=== PATIENT | female | born 1990 | race Caucasian/White ===

== ENCOUNTER 2018-01-23 15:18 | Observation (INO) | payer SELFPAY ==
[~2018-01-23] VITALS: Ht 154.9 cm; Wt 50.6 kg
[~2018-01-23 15:18] MED LIST: ACET325 PO; Bactrim Ds Tab1 EACH PO; CEPH500 PO; CYCL10 PO; Diflucan100 MG PO; HYDACE5; HYDACE5 PO; HYDACE5325 PO; IBUP600 PO; IBUP800 PO; Keflex500 MG PO; MULVITMINE PO; NAPR500 PO; ONDA8 PO; OXYACE5T PO; PROM25 PO; Percocet 5-3251 EACH PO; Permethrin59 ML TOP; RXSULTRIDS; SULTRIDS PO
[2018-01-23 15:59] LABS: BASOPHILS ABSOLUTE AUTO 0.02 K/mm3 (0.00-0.23); BASOPHILS PERCENT AUTO 0 % (0-2); EOSINOPHILS ABSOLUTE AUTO 0.15 K/mm3 (0.00-0.68); EOSINOPHILS PERCENT AUTO 1 % (0-6); Hematocrit 39.7 % (33.0-51.0); Hemoglobin 13.2 g/dL (11.5-16.0); IMMATURE GRAN PERCENT AUTO 1 % (0-1); LYMPHOCYTES ABSOLUTE AUTO 1.56 K/mm3 (0.84-5.20); LYMPHOCYTES PERCENT AUTO 14 % (21-46); MONOCYTES ABSOLUTE AUTO 0.58 K/mm3 (0.16-1.47); MONOCYTES PERCENT AUTO 5 % (4-13); Mean Corpuscular HGB 30.5 pg (26.0-34.0); Mean Corpuscular HGB Conc 33.2 g/dL (31.5-36.5); Mean Corpuscular Volume 92 fL (80-100); Mean Platelet Volume 9.9 fL (9.1-12.4); NEUTROPHILS ABSOLUTE AUTO 9.04 K/mm3 (1.96-9.15); NEUTROPHILS PERCENT AUTO 79 % (41-73); Platelet Count 300 K/mm3 (150-400); RDW Coefficient Variation 12.2 % (11.7-14.2); RDW Standard Deviation 40.7 fL (35.1-46.3); Red Blood Cell Count 4.33 M/mm3 (3.80-5.20); White Blood Cell Count 11.45 K/mm3 (4.00-11.30)
[2018-01-23] MEDS ORDERED: Verotin-Gr Cap1 EACH PO (16:26)
[2018-01-23 16:29] LABS: Alanine Aminotransfer (ALT/SGP 36 U/L (12-78); Albumin, Blood 3.2 g/dL (3.4-5.0); Albumin/Globulin Ratio 0.7 (0.8-1.8); Alk Phos 97 U/L (50-136); Anion Gap 8 mmol/L (6-16); Aspartate Aminotrans (AST/SGOT 14 U/L (12-37); Bilirubin, Total 0.2 mg/dL (0.1-1.0); Blood Urea Nitrogen 11 mg/dL (8-24); Bun/Creatinine Ratio 14.5 (12.0-20.0); CO2, Blood 25 mmol/L (21-32); Calcium, Blood 9.5 mg/dL (8.5-10.1); Chloride, Blood 105 mmol/L (98-108); Creatinine, Blood 0.76 mg/dL (0.40-1.00); Globulin, Blood 4.7 g/dL (2.2-4.0); Glomerular Filtration Rate >60 (60-); Glucose, Blood 76 mg/dL (70-99); Sodium, Blood 138 mmol/L (136-145); Total Protein, Blood 7.9 g/dL (6.4-8.2)
[2018-01-23 16:56] LABS: Source, Urine Clean Catch
[2018-01-23 16:59] LABS: Appearance, Urine Cloudy (Clear); Bilirubin, Urine Neg (Neg); Blood, Urine 4+ (Neg); Color, Urine Yellow (P-Yellow); Glucose Qualitative, Urine Neg (Neg); Ketones, Urine Neg (Neg); Leukocyte Esterase, Urine 3+ (Neg); Nitrite, Urine Neg (Neg); Protein, Urine 4+ (Neg); Urobilinogen, Urine NORM (Normal)
[2018-01-23 17:11] LABS: Bacteria Mod /hpf; Red Blood Cells, Urine TNTC /hpf (0-2); Squamous Epithelial Cells Rare /hpf (Few); White Blood Cells, Urine TNTC /hpf (0-5)
[2018-01-23] MEDS ORDERED: ONDA4ODT PO (21:52)
[2018-01-24 04:06] LABS: BASOPHILS ABSOLUTE AUTO 0.01 K/mm3 (0.00-0.23); BASOPHILS PERCENT AUTO 0 % (0-2); EOSINOPHILS ABSOLUTE AUTO 0.12 K/mm3 (0.00-0.68); EOSINOPHILS PERCENT AUTO 1 % (0-6); IMMATURE GRAN ABSOLUTE AUTO 0.05 K/mm3 (0.00-0.10); IMMATURE GRAN PERCENT AUTO 1 % (0-1); LYMPHOCYTES ABSOLUTE AUTO 1.31 K/mm3 (0.84-5.20); LYMPHOCYTES PERCENT AUTO 15 % (21-46); MONOCYTES ABSOLUTE AUTO 0.69 K/mm3 (0.16-1.47); MONOCYTES PERCENT AUTO 8 % (4-13); Mean Corpuscular HGB 30.7 pg (26.0-34.0); Mean Corpuscular HGB Conc 33.3 g/dL (31.5-36.5); Mean Corpuscular Volume 92 fL (80-100); Mean Platelet Volume 10.3 fL (9.1-12.4); NEUTROPHILS ABSOLUTE AUTO 6.45 K/mm3 (1.96-9.15); NEUTROPHILS PERCENT AUTO 75 % (41-73); Platelet Count 228 K/mm3 (150-400); RDW Coefficient Variation 12.1 % (11.7-14.2); RDW Standard Deviation 40.9 fL (35.1-46.3); Red Blood Cell Count 3.26 M/mm3 (3.80-5.20); White Blood Cell Count 8.63 K/mm3 (4.00-11.30)
[2018-01-24] MEDS ORDERED: CEPH500 PO (12:33)
== END 2018-01-24 13:06 | disposition home or self-care (01) ==
LOC: ER 15:18 → SURS 15:19
PROVIDERS: Emergency Medicine; Obstetrics & Gynecology
DX: O23.02 Infections of kidney in pregnancy, second trimester (principal); O99.89 Other specified diseases and conditions complicating pregnancy, childbirth and the puerperium; N23 Unspecified renal colic; O99.332 Smoking (tobacco) complicating pregnancy, second trimester; Z91.040 Latex allergy status; Z88.0 Allergy status to penicillin; Z79.899 Other long term (current) drug therapy; Z3A.22 22 weeks gestation of pregnancy
CPT/HCPCS: 36415; 76770; 80053; 81001; 83690; 85025; 87077; 87086; 87186; 96361; 96365; 96376; 99285; G0378; J0690; J7030; J7120

== ENCOUNTER 2018-02-20 20:39 | Observation (INO) | payer SELFPAY ==
[~2018-02-20] VITALS: Ht 154.9 cm; Wt 52.0 kg
[~2018-02-20 20:39] MED LIST changes: +ONDA4ODT PO; +Verotin-Gr Cap1 EACH PO
[2018-02-20 23:43] LABS: Hematocrit 29.6 % (33.0-51.0); Hemoglobin 9.7 g/dL (11.5-16.0); Mean Corpuscular HGB 30.1 pg (26.0-34.0); Mean Corpuscular HGB Conc 32.8 g/dL (31.5-36.5); Mean Corpuscular Volume 92 fL (80-100); Mean Platelet Volume 9.8 fL (9.1-12.4); Platelet Count 209 K/mm3 (150-400); RDW Coefficient Variation 14.5 % (11.7-14.2); RDW Standard Deviation 47.8 fL (35.1-46.3); Red Blood Cell Count 3.22 M/mm3 (3.80-5.20); White Blood Cell Count 5.65 K/mm3 (4.00-11.30)
[2018-02-20 23:47] LABS: U Amphetamine Screen DETECTED; U Barbituate Screen Not Detected; U Benzodiazapine Screen Not Detected; U Buprenorphine Screen Not Detected; U Cannabinoids Screen Not Detected; U Cocaine Screen Not Detected; U Methadone Screen Not Detected; U Methamphetamine Screen DETECTED; U Opiates Screen DETECTED; U Oxycodone Screen Not Detected; U Phencyclidine Screen Not Detected; U Propoxyphene Screen Not Detected
[2018-02-21 00:03] LABS: Alanine Aminotransfer (ALT/SGP 15 U/L (12-78); Albumin, Blood 2.8 g/dL (3.4-5.0); Albumin/Globulin Ratio 0.8 (0.8-1.8); Alk Phos 74 U/L (50-136); Anion Gap 7 mmol/L (6-16); Aspartate Aminotrans (AST/SGOT 21 U/L (12-37); Bilirubin, Total 0.2 mg/dL (0.1-1.0); Blood Urea Nitrogen 10 mg/dL (8-24); Bun/Creatinine Ratio 13.5 (12.0-20.0); CO2, Blood 27 mmol/L (21-32); Calcium, Blood 8.2 mg/dL (8.5-10.1); Chloride, Blood 110 mmol/L (98-108); Creatinine, Blood 0.74 mg/dL (0.40-1.00); Globulin, Blood 3.5 g/dL (2.2-4.0); Glomerular Filtration Rate >60 (60-); Glucose, Blood 86 mg/dL (70-99); Potassium, Blood 3.3 mmol/L (3.5-5.5); Sodium, Blood 144 mmol/L (136-145); Total Protein, Blood 6.3 g/dL (6.4-8.2)
[2018-02-22 07:11] LABS: HBSAG SCREEN Negative (Negative); HCV ANTIBODY <0.1 (0.0-0.9)
[2018-02-22 11:08] LABS: HIV SCREEN 4TH GENERATION WRFX Non Reactive (Non Reactive)
== END 2018-02-21 09:15 | disposition home or self-care (01) ==
LOC: OBS 20:39 → BC 20:39 → OBS 23:01 → BC 23:01
PROVIDERS: Obstetrics & Gynecology
DX: O46.92 Antepartum hemorrhage, unspecified, second trimester (principal); O99.332 Smoking (tobacco) complicating pregnancy, second trimester; Z3A.26 26 weeks gestation of pregnancy; Z88.0 Allergy status to penicillin; Z91.040 Latex allergy status; Z79.899 Other long term (current) drug therapy
CPT/HCPCS: 36415; 76805; 76817; 80053; 81003; 85027; 85384; 86592; 86762; 99214; J7120

== ENCOUNTER 2018-03-07 02:01 | Inpatient (IN) | payer OTHER ==
[~2018-03-07] VITALS: Ht 154.9 cm; Wt 54.1 kg
[2018-03-07 05:51] LABS: Hematocrit 26.3 % (33.0-51.0); Hemoglobin 8.7 g/dL (11.5-16.0); Mean Corpuscular HGB 29.6 pg (26.0-34.0); Mean Corpuscular HGB Conc 33.1 g/dL (31.5-36.5); Mean Corpuscular Volume 90 fL (80-100); Mean Platelet Volume 9.6 fL (9.1-12.4); Platelet Count 187 K/mm3 (150-400); RDW Standard Deviation 45.7 fL (35.1-46.3); Red Blood Cell Count 2.94 M/mm3 (3.80-5.20); White Blood Cell Count 17.21 K/mm3 (4.00-11.30)
[2018-03-07 13:14] LABS: U Amphetamine Screen DETECTED; U Barbituate Screen Not Detected; U Benzodiazapine Screen Not Detected; U Buprenorphine Screen Not Detected; U Cannabinoids Screen Not Detected; U Cocaine Screen Not Detected; U Methadone Screen Not Detected; U Methamphetamine Screen DETECTED; U Opiates Screen Not Detected; U Oxycodone Screen Not Detected; U Phencyclidine Screen Not Detected; U Propoxyphene Screen Not Detected
[2018-03-07] MEDS ORDERED: IBUP800 PO (15:03)
== END 2018-03-07 15:25 | disposition home or self-care (01) | DRG 774 ==
LOC: BC 02:01
PROVIDERS: Obstetrics & Gynecology
PROC: 10E0XZZ Delivery of Products of Conception, External Approach (ICD-10-PCS; principal; 2018-03-07)
DX: O45.93 Premature separation of placenta, unspecified, third trimester (principal); O60.13X0 Preterm labor second trimester with preterm delivery third trimester, not applicable or unspecified; O99.324 Drug use complicating childbirth; O99.354 Diseases of the nervous system complicating childbirth; O99.323 Drug use complicating pregnancy, third trimester; O23.02 Infections of kidney in pregnancy, second trimester; Z37.0 Single live birth; Z3A.28 28 weeks gestation of pregnancy; G43.909 Migraine, unspecified, not intractable, without status migrainosus; O32.1XX0 Maternal care for breech presentation, not applicable or unspecified
CPT/HCPCS: 36415; 85027; J2590

== ENCOUNTER 2019-04-10 05:25 | Emergency (ER) | payer OTHER ==
[~2019-04-10] VITALS: Ht 154.9 cm; Wt 47.6 kg
== END 2019-04-10 06:35 | disposition home or self-care (01) ==
LOC: ER 05:25
DX: T23.221A Burn of second degree of single right finger (nail) except thumb, initial encounter (principal); T31.0 Burns involving less than 10% of body surface; X08.8XXA Exposure to other specified smoke, fire and flames, initial encounter; F17.200 Nicotine dependence, unspecified, uncomplicated; Z88.0 Allergy status to penicillin; Z91.030 Bee allergy status; Z91.040 Latex allergy status
CPT/HCPCS: 16020; 99283-25

== ENCOUNTER 2020-09-13 14:12 | Emergency (ER) | payer OTHER ==
[~2020-09-13] VITALS: Ht 154.9 cm; Wt 47.6 kg
[2020-09-13 17:41] LABS: BASOPHILS ABSOLUTE AUTO 0.03 K/mm3 (0.00-0.23); BASOPHILS PERCENT AUTO 0 % (0-2); EOSINOPHILS ABSOLUTE AUTO 0.17 K/mm3 (0.00-0.68); EOSINOPHILS PERCENT AUTO 2 % (0-6); Hematocrit 39.1 % (33.0-51.0); Hemoglobin 12.7 g/dL (11.5-16.0); IMMATURE GRAN ABSOLUTE AUTO 0.02 K/mm3 (0.00-0.10); IMMATURE GRAN PERCENT AUTO 0 % (0-1); LYMPHOCYTES ABSOLUTE AUTO 1.94 K/mm3 (0.84-5.20); LYMPHOCYTES PERCENT AUTO 28 % (21-46); MONOCYTES ABSOLUTE AUTO 0.52 K/mm3 (0.16-1.47); MONOCYTES PERCENT AUTO 8 % (4-13); Mean Corpuscular HGB 28.3 pg (26.0-34.0); Mean Corpuscular HGB Conc 32.5 g/dL (31.5-36.5); Mean Corpuscular Volume 87 fL (80-100); Mean Platelet Volume 10.2 fL (9.1-12.4); NEUTROPHILS ABSOLUTE AUTO 4.26 K/mm3 (1.96-9.15); NEUTROPHILS PERCENT AUTO 61 % (41-73); Platelet Count 257 K/mm3 (150-400); RDW Coefficient Variation 13.2 % (11.7-14.2); RDW Standard Deviation 41.9 fL (35.1-46.3); Red Blood Cell Count 4.49 M/mm3 (3.80-5.20); White Blood Cell Count 6.94 K/mm3 (4.00-11.30)
[2020-09-13 18:05] LABS: Alanine Aminotransfer (ALT/SGP 22 U/L (12-78); Albumin, Blood 3.9 g/dL (3.4-5.0); Albumin/Globulin Ratio 0.9 (0.8-1.8); Alk Phos 69 U/L (50-136); Anion Gap 5 mmol/L (6-16); Aspartate Aminotrans (AST/SGOT 15 U/L (12-37); Bilirubin, Total 0.4 mg/dL (0.1-1.0); Blood Urea Nitrogen 15 mg/dL (8-24); Bun/Creatinine Ratio 29.4 (12.0-20.0); CO2, Blood 29 mmol/L (21-32); Calcium, Blood 9.7 mg/dL (8.5-10.1); Chloride, Blood 103 mmol/L (98-108); Creatinine, Blood 0.51 mg/dL (0.40-1.00); Globulin, Blood 4.2 g/dL (2.2-4.0); Glomerular Filtration Rate >60 (60-); Glucose, Blood 55 mg/dL (70-99); Potassium, Blood 3.1 mmol/L (3.5-5.5); Sodium, Blood 137 mmol/L (136-145); Total Protein, Blood 8.1 g/dL (6.4-8.2)
[2020-09-13 18:17] LABS: Beta HCG, Quantitative, Serum 52963 mIU/mL (0-3)
== END 2020-09-13 21:19 | disposition home or self-care (01) ==
LOC: ER 14:12
PROVIDERS: Physician Assistant
DX: O09.91 Supervision of high risk pregnancy, unspecified, first trimester (principal); O46.91 Antepartum hemorrhage, unspecified, first trimester; O99.321 Drug use complicating pregnancy, first trimester; F11.10 Opioid abuse, uncomplicated; F17.200 Nicotine dependence, unspecified, uncomplicated; Z88.0 Allergy status to penicillin; Z3A.13 13 weeks gestation of pregnancy; Z91.040 Latex allergy status
CPT/HCPCS: 36415; 76801; 80053; 84702; 85025; 86850; 86900; 86901; 99283

== ENCOUNTER 2020-11-05 12:43 | Inpatient (IN) | payer OTHER ==
[~2020-11-05] VITALS: Ht 154.9 cm; Wt 48.5 kg
--- NOTE | 2020-11-05 12:30 | NUR ---
AROUND 1230 BABY ARRIVED VIA AMBULANCE AFTER DELIVERING BABY IN LEGS OF PANTS IN AMBULANCE. HH RN ASSUMED CARE AT 1236, LITTL BOY,NO HEART BEAT, CORD CUT AND WITH FUNDAL MASSAGE PLANCENTA CAME OUT AT 1237. PT ADMITS TO USING HERION THIS MORNING AT 0630 SMOKING IT AND USES IT 1-2 TIMES A WEEK, REPORTS IS A SMOKER ONLY 4-5 CIGS A DAY. PT REPORTS TRYING TO GET INTO TREATMENT FOR HER DRUG USE
[2020-11-05 13:21] LABS: BASOPHILS ABSOLUTE AUTO 0.02 K/mm3 (0.00-0.23); BASOPHILS PERCENT AUTO 0 % (0-2); EOSINOPHILS ABSOLUTE AUTO 0.03 K/mm3 (0.00-0.68); EOSINOPHILS PERCENT AUTO 0 % (0-6); Hematocrit 34.1 % (33.0-51.0); Hemoglobin 11.1 g/dL (11.5-16.0); IMMATURE GRAN ABSOLUTE AUTO 0.05 K/mm3 (0.00-0.10); IMMATURE GRAN PERCENT AUTO 0 % (0-1); LYMPHOCYTES ABSOLUTE AUTO 0.58 K/mm3 (0.84-5.20); LYMPHOCYTES PERCENT AUTO 4 % (21-46); MONOCYTES ABSOLUTE AUTO 0.73 K/mm3 (0.16-1.47); MONOCYTES PERCENT AUTO 6 % (4-13); Mean Corpuscular HGB 28.1 pg (26.0-34.0); Mean Corpuscular HGB Conc 32.6 g/dL (31.5-36.5); Mean Corpuscular Volume 86 fL (80-100); Mean Platelet Volume 9.9 fL (9.1-12.4); NEUTROPHILS ABSOLUTE AUTO 11.76 K/mm3 (1.96-9.15); NEUTROPHILS PERCENT AUTO 89 % (41-73); Platelet Count 183 K/mm3 (150-400); RDW Coefficient Variation 13.2 % (11.7-14.2); RDW Standard Deviation 41.2 fL (35.1-46.3); Red Blood Cell Count 3.95 M/mm3 (3.80-5.20); White Blood Cell Count 13.17 K/mm3 (4.00-11.30)
--- NOTE | 2020-11-05 13:35 | NUR ---
cps notified of delivery as per there letter in the chart, we have no history, no care during this , only ultrasound was done in ER at 13 weeks. jojo notified at cps thru hotline
--- NOTE | 2020-11-05 13:35 | NUR ---
shaheed sent to pathology per dr nelson
--- NOTE | 2020-11-05 13:47 | NUR ---
dr nelson at bedside, plan to do ultrasound of abd
[2020-11-05 13:58] LABS: Influenza A, PCR NEGATIVE (NEGATIVE); Influenza B, PCR NEGATIVE (NEGATIVE); Resp Syncytial Virus, PCR NEGATIVE (NEGATIVE); SARS-Cov-2 (COVID-19) PCR, MMC NEGATIVE (NEGATIVE)
[2020-11-05] MEDS ORDERED: IBUP800 PO (15:28)
--- NOTE | 2020-11-05 15:29 | NUR ---
MEY SOUSA CALLED TO COME AND GET BABY. MOM IS READY FOR BABY TO GO SHE IS CURRENTLY SLEEPING
--- NOTE | 2020-11-05 15:35 | NUR ---
PT SO IS BACK, ENCOURAGED HIM TO GET HER SOME DIFFERENT CLOTHS TO WEAR, HE REPORTS THEY LIVE IN [place] AND THEY CANT GO GET ANY, THEY ARE AWARE PT COULD WEAR A GOWN HOME
--- NOTE | 2020-11-05 15:43 | NUR ---
bisi john called and on the way to get baby, they are going to come and get baby now and bring the paper work to have them sign.
--- NOTE | 2020-11-05 15:46 | NUR ---
iv site dcd, pt up amb in room, got herself up to bathroom and reports voided, wants to go home, asked her to wait until bisi gets here for baby, they have some paperwork for her to sign, she is fine with that, wants to smoke, aware [facility] is a smoke free [facility]. plans to smoke in her car. pt wearing hosp gown, robe and socks, her cloths are dirty (delivered in them) and SO isnt willing to go get new ones or drive to [place] to get her a change of cloths. she is happy with the robe
--- NOTE | 2020-11-05 16:24 | NUR ---
bisi here for baby. waiting for mom to come back in
--- NOTE | 2020-11-05 16:26 | NUR ---
bisi leaving with baby, gemma damon came back in. mom gave permission earlier to have them come.
--- NOTE | 2020-11-05 16:46 | NUR ---
DC INSTRUNCTIONS GONE OVER, HAVE A PPFU PHONE CALL, MMR GIVEN, ENCOURQAGED TO CALL WITH QUESTIONS, AWARE ALEXANDRA WILL CALL WITH HER MOLDS, NOT READY TO BE GIVEN OUT. PT CHOOSE TO AMBULATE OUT WITH SO.
[2020-11-06 09:08] LABS: HIV SCREEN 4TH GENERATION WRFX Non Reactive (Non Reactive)
--- NOTE | 2020-11-06 14:16 | NUR ---
T/C TO [phone]. IMMEDIATELY WENT TO VOICE MAIL AND MAIL BOX IS NOT SET UP. NOT ABLE TO LEAVE A MESSAGE.
== END 2020-11-05 16:50 | disposition home or self-care (01) | DRG 779 ==
LOC: OBS 12:43 → BC 12:49
PROVIDERS: ADMIT Obstetrics & Gynecology
PROC: 10E0XZZ Delivery of Products of Conception, External Approach (ICD-10-PCS; principal; 2020-11-05)
DX: O03.9 Complete or unspecified spontaneous abortion without complication (principal); O45.92 Premature separation of placenta, unspecified, second trimester; O99.322 Drug use complicating pregnancy, second trimester; Z3A.20 20 weeks gestation of pregnancy; Z20.822 Contact with and (suspected) exposure to COVID-19; F11.10 Opioid abuse, uncomplicated; F19.10 Other psychoactive substance abuse, uncomplicated; Z88.0 Allergy status to penicillin; Z91.040 Latex allergy status; Z91.030 Bee allergy status
CPT/HCPCS: 0241U; 36415; 59414; 85025; 86317; 86592; 86762; 86850; 86900; 86901; 87389; 88307; 90471; 90707; A9270; J1885; J2590; J7120

== ENCOUNTER 2022-04-21 05:33 | Emergency (ER) | payer OTHER ==
[~2022-04-21] VITALS: Ht 154.9 cm; Wt 49.9 kg
[~2022-04-21 05:33] MED LIST changes: +BENADRYL25 MG PO; +METPRE4DP PO; +Pepcid20 MG PO
[2022-04-21] MEDS ORDERED: SULTRIDS PO (06:54)
== END 2022-04-21 07:14 | disposition home or self-care (01) ==
LOC: ER 05:33
DX: L02.215 Cutaneous abscess of perineum (principal); F17.210 Nicotine dependence, cigarettes, uncomplicated; Z88.0 Allergy status to penicillin; Z91.038 Other insect allergy status; Z91.040 Latex allergy status
CPT/HCPCS: A9270

== ENCOUNTER 2022-04-29 20:02 | Emergency (ER) | payer OTHER ==
[~2022-04-29] VITALS: Ht 154.9 cm; Wt 52.2 kg
[2022-04-29] MEDS ORDERED: Zithromax250 MG PO (20:18)
== END 2022-04-29 20:23 | disposition home or self-care (01) ==
LOC: ER 20:02
DX: J02.9 Acute pharyngitis, unspecified (principal); F17.210 Nicotine dependence, cigarettes, uncomplicated; Z88.0 Allergy status to penicillin; Z91.038 Other insect allergy status; Z91.040 Latex allergy status
CPT/HCPCS: A9270; J1100

== ENCOUNTER 2022-05-29 16:35 | Emergency (ER) | payer OTHER ==
[~2022-05-29] VITALS: Ht 154.9 cm; Wt 53.1 kg
[~2022-05-29 16:35] MED LIST changes: +Zithromax250 MG PO
[2022-05-29] MEDS ORDERED: SULTRISS PO (17:22)
[2022-05-29] MEDS ORDERED: CEPH500 PO (17:22)
== END 2022-05-29 17:24 | disposition home or self-care (01) ==
LOC: ER 16:35
DX: L02.415 Cutaneous abscess of right lower limb (principal); L03.115 Cellulitis of right lower limb; F17.210 Nicotine dependence, cigarettes, uncomplicated; Z88.0 Allergy status to penicillin; Z91.030 Bee allergy status; Z91.040 Latex allergy status
CPT/HCPCS: 99282

== ENCOUNTER 2023-07-19 19:14 | Emergency (ER) | payer OTHER ==
[~2023-07-19] VITALS: Ht 162.6 cm; Wt 59.0 kg
[~2023-07-19 19:14] MED LIST changes: +SULTRISS PO
[2023-07-19 19:31] VITALS: BP 140/95
== END 2023-07-19 20:11 | disposition home or self-care (01) ==
LOC: ER 19:14
DX: B86 Scabies (principal); Z88.0 Allergy status to penicillin; Z91.030 Bee allergy status; Z91.040 Latex allergy status; Z79.899 Other long term (current) drug therapy; F17.210 Nicotine dependence, cigarettes, uncomplicated
CPT/HCPCS: 99282; A9270

== ENCOUNTER → 2023-11-25 | Outpatient (CLI) | payer OTHER ==
[2023-11-25 20:25] LABS: Candida Group, PCR NOT DETECTED (NOT DETECT); Candida glabrata-krusei, PCR NOT DETECTED (NOT DETECT)
[2023-11-25 20:47] LABS: Bacterial Vaginosis PCR Positive (NEGATIVE)
[2023-11-28 11:26] LABS: APTIMA MEDIA TYPE Urine; C. TRACHOMATIS BY TMA Negative (Negative); N. GONORRHOEAE BY TMA Negative (Negative); SPECIMEN SOURCE Urine; T. VAGINALIS BY TMA Negative (Negative)
== END | disposition home or self-care (01) ==
LOC: LAB SHORT 16:00 → LAB 16:00
PROVIDERS: Nurse Practitioner
DX: Z20.2 Contact with and (suspected) exposure to infections with a predominantly sexual mode of transmission (principal)
CPT/HCPCS: 87481; 87491; 87591; 87661; 87801

== ENCOUNTER 2024-02-24 04:09 | Emergency (ER) | payer OTHER ==
[~2024-02-24] VITALS: Ht 154.9 cm; Wt 54.4 kg
[2024-02-24] MEDS ORDERED: MetroNIDAZOLE 500 MG Tab PO ONE (04:55)
[2024-02-24] MEDS ORDERED: Cefuroxime Axetil 250 MG Tab PO ONE (04:55)
[2024-02-24] MEDS ORDERED: Ketorolac Tromethamine 30mg Vial IV ONE (04:55)
[2024-02-24] MEDS ORDERED: DOXY100 PO (06:57)
[2024-02-24 07:31] VITALS: BP 119/67
== END 2024-02-24 07:31 | disposition home or self-care (01) ==
LOC: ER 04:09
DX: S70.372A Other superficial bite of left thigh, initial encounter (principal); F17.210 Nicotine dependence, cigarettes, uncomplicated; W54.0XXA Bitten by dog, initial encounter; Z88.0 Allergy status to penicillin; Z91.040 Latex allergy status; Z91.030 Bee allergy status
CPT/HCPCS: 12002; 96372-59; 99283-25; A9270; J1885

== ENCOUNTER 2024-06-10 20:00 | Inpatient (IN) | payer OTHER ==
[~2024-06-10] VITALS: Ht 154.9 cm; Wt 57.0 kg
[~2024-06-10 20:00] MED LIST changes: +DOXY100 PO
[2024-06-10 21:38] LABS: BASOPHILS ABSOLUTE AUTO 0.02 K/mm3 (0.00-0.23); BASOPHILS PERCENT AUTO 0 % (0-2); EOSINOPHILS ABSOLUTE AUTO 0.16 K/mm3 (0.00-0.68); EOSINOPHILS PERCENT AUTO 2 % (0-6); Hematocrit 37.9 % (33.0-51.0); Hemoglobin 12.2 g/dL (11.5-16.0); IMMATURE GRAN ABSOLUTE AUTO 0.02 K/mm3 (0.00-0.10); IMMATURE GRAN PERCENT AUTO 0 % (0-1); LYMPHOCYTES ABSOLUTE AUTO 1.07 K/mm3 (0.84-5.20); LYMPHOCYTES PERCENT AUTO 13 % (21-46); MONOCYTES ABSOLUTE AUTO 0.76 K/mm3 (0.16-1.47); MONOCYTES PERCENT AUTO 9 % (4-13); Mean Corpuscular HGB 27.4 pg (26.0-34.0); Mean Corpuscular HGB Conc 32.2 g/dL (31.5-36.5); Mean Corpuscular Volume 85 fL (80-100); Mean Platelet Volume 10.2 fL (9.1-12.4); NEUTROPHILS ABSOLUTE AUTO 6.23 K/mm3 (1.96-9.15); NEUTROPHILS PERCENT AUTO 76 % (41-73); Platelet Count 164 K/mm3 (150-400); RDW Coefficient Variation 13.5 % (11.7-14.2); RDW Standard Deviation 42.5 fL (35.1-46.3); Red Blood Cell Count 4.45 M/mm3 (3.80-5.20); White Blood Cell Count 8.26 K/mm3 (4.00-11.30)
[2024-06-10 22:02] LABS: Albumin, Blood 3.2 g/dL (3.4-5.0); Albumin/Globulin Ratio 0.6 (0.8-1.8); Bilirubin, Total 0.4 mg/dL (0.1-1.0); Bun/Creatinine Ratio 24.5 (12.0-20.0); Calcium, Blood 9.4 mg/dL (8.5-10.1); Creatinine, Blood 0.69 mg/dL (0.40-1.00); Potassium, Blood 5.4 mmol/L (3.5-5.5); Total Protein, Blood 8.2 g/dL (6.4-8.2)
[2024-06-11] MEDS ORDERED: CefTRIAXone Sodium 1,000 MG in NS 50 ML IV ONE (02:00)
[2024-06-11] MEDS ORDERED: FentaNYL Citrate 50 MCG/ML 2 ML Injection IV PRN (02:00)
[2024-06-11] MEDS ORDERED: NS 1,000 ML IV SCH ×2 (02:00→07:35)
[2024-06-11] MEDS ORDERED: Ketorolac Tromethamine 30mg Vial IV ONE (02:00)
[2024-06-11] MEDS ORDERED: Vancomycin HCL 1,500 MG in NS 250 ML IV ONE (02:20)
[2024-06-11] MEDS ORDERED: Vancomycin HCL 1,250 MG in NS 250 ML IV ONE (02:20)
[2024-06-11] MEDS ORDERED: Magnesium Hydroxide Conc 10 ML UDC PO PRN (02:50)
[2024-06-11] MEDS ORDERED: FLU VACC TS2024-25(6MOS UP)/PF 45 MCG/0.5 ML SYRINGE IM SCH (02:50)
[2024-06-11] MEDS ORDERED: Nicotine Polacrilex 2 MG Gum PO PRN (03:45)
[2024-06-11] MEDS ORDERED: Lactated Ringer's 500 ML IV ONE (05:00)
[2024-06-11] MEDS ORDERED: Lactated Ringer's 1,000 ML IV SCH (07:32)
[2024-06-11] MEDS ORDERED: Clindamycin 900mg in D5W 50ML 50 ML IV ONE (07:45)
[2024-06-11] MEDS ORDERED: Lactobacil 2-S.Thermo-Bifido 1 1 Cap PO SCH (09:00)
[2024-06-11] MEDS ORDERED: Enoxaparin 40 MG/0.4 ML SYR SC SCH (09:00)
[2024-06-11 09:26] VITALS: BP 102/69
[2024-06-11 10:52] LABS: Anti-Xa UFH, PHA Monitoring <0.10 IU/mL; International Normalized Ratio 1.05; Prothrombin Time Results 11.2 Sec (9.7-11.5)
[2024-06-11] MEDS ORDERED: Dose Adjust by Pharmacy XX STA ×2 (11:08→19:40)
[2024-06-11] MEDS ORDERED: Heparin Sodium 5000 Units/ML 1ML MDV IV ONE ×2 (11:10→19:40)
[2024-06-11] MEDS ORDERED: Heparin Sodium,Porcine/0.5 NS 500 ML IV SCH (11:10)
[2024-06-11 15:25] VITALS: BP 105/60
--- NOTE | 2024-06-11 17:21 | NUR ---
SHIFT SUMMARY PT IS A/OX4. ADMITTED FROM THE ED THIS MORNING WITH REDNESS, SWELLING, AND PAIN OF THE RIGHT LEG. PT REPORT TO HAVE A DOG BITE ON THE LEFT UPPER LEG/HIP THAT OCCURED ABOUT A MONTH AGO. RECIEVING HEPARIN, 18 UNITS/KG/HR, WITH A RATE OF 21.6 ML/HR. ON CONTACT PRECAUTIONS FOR A HISTORY OF MRSA. PT SLEPT FOR MUCH OF THE AFTERNOON. PT MEDICATED X1 WITH FENTANYL THIS SHIFT PER OCT, NO C/O PAIN SINCE. PT ON RA, NO TELE
[2024-06-11 20:22] VITALS: BP 97/59
[2024-06-12] VITALS (7 sets, daily range): BP systolic 97–131; BP diastolic 59–87
[2024-06-12 02:57] LABS: BASOPHILS ABSOLUTE AUTO 0.03 K/mm3 (0.00-0.23); BASOPHILS PERCENT AUTO 1 % (0-2); EOSINOPHILS PERCENT AUTO 4 % (0-6); Hematocrit 30.7 % (33.0-51.0); Hemoglobin 9.8 g/dL (11.5-16.0); IMMATURE GRAN ABSOLUTE AUTO 0.01 K/mm3 (0.00-0.10); IMMATURE GRAN PERCENT AUTO 0 % (0-1); LYMPHOCYTES ABSOLUTE AUTO 1.73 K/mm3 (0.84-5.20); LYMPHOCYTES PERCENT AUTO 34 % (21-46); MONOCYTES ABSOLUTE AUTO 0.52 K/mm3 (0.16-1.47); MONOCYTES PERCENT AUTO 10 % (4-13); Mean Corpuscular HGB 27.8 pg (26.0-34.0); Mean Corpuscular HGB Conc 31.9 g/dL (31.5-36.5); Mean Corpuscular Volume 87 fL (80-100); Mean Platelet Volume 9.8 fL (9.1-12.4); NEUTROPHILS ABSOLUTE AUTO 2.57 K/mm3 (1.96-9.15); NEUTROPHILS PERCENT AUTO 51 % (41-73); Platelet Count 168 K/mm3 (150-400); RDW Coefficient Variation 13.6 % (11.7-14.2); RDW Standard Deviation 43.5 fL (35.1-46.3); Red Blood Cell Count 3.52 M/mm3 (3.80-5.20); White Blood Cell Count 5.06 K/mm3 (4.00-11.30)
[2024-06-12] MEDS ORDERED: Dose Adjust by Pharmacy XX STA ×2 (02:59→14:39)
[2024-06-12] MEDS ORDERED: Heparin Sodium 5000 Units/ML 1ML MDV IV ONE ×2 (03:00→14:40)
--- NOTE | 2024-06-12 03:13 | NUR ---
PER LAB, POSSIBLE CONTAMINATION OF BLOOD DRAW. ALL LABS BEING REPEATED. PHARMACY WROTE ORDERS FOR HEPARIN DRIP BASED OFF OF POSSIBLY CONTAMINATED RESULTS- PHARMACIST NOTIFIED, AND WE ARE CURRENTLY HOLDING ANY CHANGES TO HEPARIN DRIP UNTIL LABS ARE RESULTED.
[2024-06-12 03:24] LABS: Albumin, Blood 2.5 g/dL (3.4-5.0); Albumin/Globulin Ratio 0.6 (0.8-1.8); Bilirubin, Total 0.2 mg/dL (0.1-1.0); Bun/Creatinine Ratio 17.3 (12.0-20.0); Calcium, Blood 8.3 mg/dL (8.5-10.1); Creatinine, Blood 0.64 mg/dL (0.40-1.00); Potassium, Blood 3.6 mmol/L (3.5-5.5); Total Protein, Blood 6.5 g/dL (6.4-8.2)
--- NOTE | 2024-06-12 06:11 | NUR ---
SHIFT SUMMARY PT DROWSY/ WITHDRAWN MOST OF THE SHIFT. VERBALIZING FRUSTRATION WITH MULTIPLE BLOOD DRAWS AND BEING WOKEN UP FOR HEPARIN RATE CHANGES. HG THIS AM DOWN TO 9.8, FROM 12.2 IN THE ED- LABS ORDERED FOR NOON TODAY. RLE REMAINS VERY SWOLLEN, 2+ PITTING EDEMA, AND PAINFUL. MEDICATED WITH FENTANYL X2- SEE EMAR. CALL LIGHT WITHIN REACH, SIDE RAILS UP X2.
[2024-06-12 13:28] LABS: Hemoglobin 9.9 g/dL (11.5-16.0)
[2024-06-12] MEDS ORDERED: NS 250 ML IV ONE (14:56)
[2024-06-12] MEDS ORDERED: Heparin Sodium 1000 Units/ML 10ML MDV ONE (14:57)
[2024-06-12] MEDS ORDERED: NS 1,000 ML IV ONE ×2 (14:57→15:52)
[2024-06-12] MEDS ORDERED: Midazolam HCl 1MG / ML 2ML Vial ONE ×3 (15:52→16:20)
[2024-06-12] MEDS ORDERED: FentaNYL Citrate 50 MCG/ML 2 ML Injection ONE ×3 (15:52→16:20)
[2024-06-12] MEDS ORDERED: DiphenhydrAMINE HCl 50 MG/ML 1ML Vial ONE (16:52)
[2024-06-12] MEDS ORDERED: LORazepam 2 MG/ML 1ML Injection ONE (16:53)
[2024-06-12] MEDS ORDERED: Haloperidol Lactate Inj. 5 MG/ML Injection IV ONE (17:00)
--- NOTE | 2024-06-12 17:24 | NUR ---
SHIFT SUMMARY: PT IS A&OX4/SBA. PATIENT WITHDRAWN AND FLAT. PATIENT OVERALL PLEASANT AND COOPERATIVE WITH THIS RN. PATIENT WAS GETTING A HEPARIN DRIP AND IV FLUIDS PRIOR TO BEING TAKEN DOWN TO THE THE LINING REPAIRER FOR PROCEDURE. HEPARIN WAS STOPPED AROUND 1540 AND PHARMACY NOTIFIED. WHEN PATIENT WAS TAKEN DOWN TO LINING REPAIRER DID NOT APPEAR TO BE IN DISTRESS.
[2024-06-12] MEDS ORDERED: LORazepam 2 MG/ML 1ML Injection IV PRN (17:30)
--- NOTE | 2024-06-12 17:49 | NUR ---
arrival to pcu patient arrived to pcu from [employer] via pcu bed. patient is groans with painful stimuli. this rn received bedside report from heart center nurse that patient was very anxious with any stimuli to legs and screaming. patient medicated while in the heart center. see paper chart for detials. patient has bilateral popliteal site. the right popliteal site has a flowstasis device in place, and to leave in place till morning and remove. patient has dressing over left popliteal site. lung sounds are clear. spo2 >90% on room air. repsirations 16 even and unlabored. patient partner at bedside during report. vital signs stable. plan of care is up to date.
[2024-06-13 00:07] VITALS: BP 118/60
--- NOTE | 2024-06-13 03:44 | NUR ---
SHIFT SUMMARY NEURO: PT BEGAN THE SHIFT OBTUNDED BUT IS CLEARING THE SHIFT PROGRESSES. A/OX4, SLOW TO RESPOND. MOVES ALL EXTREMETIES WITH EQUAL STRENGTH. RT LEG ROM DECREASED D/T PAIN AND SWELLING. CARDIAC: SR, +1 RT PEDAL PULSE +3 EDEMA TO RT LEG. FEBRILE TMAX (AT THIS TIME) AT 100.9F LUNGS: WNL GI/: UTILIZING BEDSIDE COMMODE. SKIN: SCATTERED LESIONS, PT REPORTS USING IV DRUGS. FLOSTASIS TO RT POPLITEAL.
[2024-06-13 04:53] VITALS: BP 105/53
[2024-06-13 06:14] LABS: BASOPHILS ABSOLUTE AUTO 0.02 K/mm3 (0.00-0.23); BASOPHILS PERCENT AUTO 0 % (0-2); EOSINOPHILS ABSOLUTE AUTO 0.02 K/mm3 (0.00-0.68); EOSINOPHILS PERCENT AUTO 0 % (0-6); Hematocrit 25.8 % (33.0-51.0); Hemoglobin 8.5 g/dL (11.5-16.0); IMMATURE GRAN ABSOLUTE AUTO 0.01 K/mm3 (0.00-0.10); IMMATURE GRAN PERCENT AUTO 0 % (0-1); LYMPHOCYTES ABSOLUTE AUTO 0.98 K/mm3 (0.84-5.20); LYMPHOCYTES PERCENT AUTO 20 % (21-46); MONOCYTES ABSOLUTE AUTO 0.49 K/mm3 (0.16-1.47); MONOCYTES PERCENT AUTO 10 % (4-13); Mean Corpuscular HGB 27.4 pg (26.0-34.0); Mean Corpuscular HGB Conc 32.9 g/dL (31.5-36.5); Mean Corpuscular Volume 83 fL (80-100); Mean Platelet Volume 9.7 fL (9.1-12.4); NEUTROPHILS ABSOLUTE AUTO 3.38 K/mm3 (1.96-9.15); NEUTROPHILS PERCENT AUTO 69 % (41-73); Platelet Count 195 K/mm3 (150-400); RDW Coefficient Variation 13.4 % (11.7-14.2); RDW Standard Deviation 40.9 fL (35.1-46.3)
[2024-06-13 06:35] LABS: Albumin, Blood 2.3 g/dL (3.4-5.0); Albumin/Globulin Ratio 0.6 (0.8-1.8); Bilirubin, Total 0.5 mg/dL (0.1-1.0); Bun/Creatinine Ratio 6.4 (12.0-20.0); Calcium, Blood 8.4 mg/dL (8.5-10.1); Creatinine, Blood 0.79 mg/dL (0.40-1.00); Globulin, Blood 3.7 g/dL (2.2-4.0); Potassium, Blood 3.3 mmol/L (3.5-5.5)
[2024-06-13] MEDS ORDERED: Potassium Chloride 10 Meq Tablet SA PO ONE (09:00)
[2024-06-13] MEDS ORDERED: Acetaminophen 325 MG TABLET PO PRN (09:10)
[2024-06-13] MEDS ORDERED: Ondansetron HCl 2 MG / ML 2ML Vial IV PRN ×2 (09:10→15:20)
[2024-06-13] MEDS ORDERED: Ondansetron HCl 2 MG / ML 2ML Vial IV ONE (10:30)
[2024-06-13] MEDS ORDERED: Prochlorperazine Edisylate 10 mg Vial IV ONE ×3 (11:50→15:00)
[2024-06-13 12:28] VITALS: BP 123/92
[2024-06-13 14:37] LABS: PROTEIN C FUNCTIONAL 89 % (83-168)
[2024-06-13] MEDS ORDERED: Prochlorperazine Edisylate 10 mg Vial IV PRN (15:00)
[2024-06-13] MEDS ORDERED: Potassium Chl 20MEQ/Water100ML 100 ML IV SCH (16:45)
[2024-06-13] MEDS ORDERED: Nicotine 7 MG PATCH TOP SCH (16:45)
[2024-06-13 16:50] VITALS: BP 122/70
--- NOTE | 2024-06-13 18:52 | NUR ---
Shift Summary Pt responds to verbal/ tactile stimuli; wakes and quickly falls back to sleep, oriented to self. Pt reports pain everywhere, offered tylenol, pt denied. Pt had several episodes of emesis, medicated per MD tera aware. Abd, soft, nontender, +bt noted t/o. Tele sinus khoi/sinus 50-60 while sleeping, 60-70 while awake; bp stable. Spo2 >90% on ra, breathing even and unlabored. Edema t/o noted, nonpitting; edema to ble +2 to RLE, +1 to LLE. Flowstatsis from Right leg removed this am. No other acute chagnes noted. Will continue to monitor.
[2024-06-13 19:05] LABS: PROTEIN S FUNCTIONAL 42 % (57-131)
[2024-06-13 19:43] VITALS: BP 118/72
[2024-06-13 23:05] VITALS: BP 114/66
--- NOTE | 2024-06-14 01:51 | NUR ---
SHIFT SUMMARY NEURO: PT A/OX4. LETHARGIC AND UNMOTIVATED TO PARTICIPATE IN ASSESSMENT. EQUAL STRENGTH THROUGHOUT. PAIN IN RIGHT LEG STILL PRESENT CARDIAC: PULSES PRESENT THROUGHOUT, WEAKER IN RIGHT LEG, COLOR STILL NOMRAL, WARM TO TOUCH AND +3 EDEMA. TEMPERATURES TRENDING DOWN. LUNGS: TACHYPNEIC AT TIMES, OTHERWISE WNL GI/: CONTINENT SO FAR THIS SHIFT. ONE LARGE, FIRM BM REPORTED BY THE PROJECT ASSOCIATE. EMESIS X1 THAT WAS GREEN. PT DECLINED ANTIEMETICS AT THIS TIME. HEPARIN STILL INFUSING, POTASSIUM REPLACED AT BEGINNING OF SHIFT.
[2024-06-14 04:36] VITALS: BP 109/84
[2024-06-14 04:51] LABS: BASOPHILS ABSOLUTE AUTO 0.01 K/mm3 (0.00-0.23); BASOPHILS PERCENT AUTO 0 % (0-2); EOSINOPHILS PERCENT AUTO 0 % (0-6); Hematocrit 26.4 % (33.0-51.0); Hemoglobin 8.7 g/dL (11.5-16.0); IMMATURE GRAN ABSOLUTE AUTO 0.02 K/mm3 (0.00-0.10); IMMATURE GRAN PERCENT AUTO 0 % (0-1); LYMPHOCYTES ABSOLUTE AUTO 0.84 K/mm3 (0.84-5.20); LYMPHOCYTES PERCENT AUTO 15 % (21-46); MONOCYTES PERCENT AUTO 9 % (4-13); Mean Corpuscular HGB 27.3 pg (26.0-34.0); Mean Corpuscular Volume 83 fL (80-100); Mean Platelet Volume 9.5 fL (9.1-12.4); NEUTROPHILS ABSOLUTE AUTO 4.43 K/mm3 (1.96-9.15); NEUTROPHILS PERCENT AUTO 76 % (41-73); Platelet Count 239 K/mm3 (150-400); RDW Coefficient Variation 13.2 % (11.7-14.2); RDW Standard Deviation 40.4 fL (35.1-46.3); Red Blood Cell Count 3.19 M/mm3 (3.80-5.20)
[2024-06-14 05:16] LABS: Albumin, Blood 2.5 g/dL (3.4-5.0); Albumin/Globulin Ratio 0.6 (0.8-1.8); Bilirubin, Total 0.4 mg/dL (0.1-1.0); Calcium, Blood 8.6 mg/dL (8.5-10.1); Creatinine, Blood 0.75 mg/dL (0.40-1.00); Magnesium, Blood 1.8 mg/dL (1.6-2.4); Phosphorus, Blood 2.7 mg/dL (2.5-4.9); Potassium, Blood 3.8 mmol/L (3.5-5.5); Total Protein, Blood 6.5 g/dL (6.4-8.2)
[2024-06-14 09:05] VITALS: BP 122/85
[2024-06-14 11:18] VITALS: BP 117/85
[2024-06-14 11:28] LABS: Source, Urine Straight Cath
[2024-06-14 11:39] LABS: Appearance, Urine Clear (Clear); Bilirubin, Urine Neg (Neg); Blood, Urine 2+ (Neg); Color, Urine Yellow (P-Yellow); Glucose Qualitative, Urine Neg (Neg); Ketones, Urine 3+ (Neg); Leukocyte Esterase, Urine Neg (Neg); Nitrite, Urine Neg (Neg); Protein, Urine Neg (Neg); Urobilinogen, Urine 1+ (Normal); pH, Urine 6.5 (5.0-8.0)
[2024-06-14 12:12] LABS: Hyaline Casts 0-2 /lpf (0-2); Mucus Heavy (0-Heavy)
[2024-06-14 12:13] LABS: Red Blood Cells, Urine 0-2 /hpf (0-2); Squamous Epithelial Cells Many /hpf (Few); White Blood Cells, Urine 0-2 /hpf (0-5)
[2024-06-14 12:14] LABS: Bacteria Few /hpf
[2024-06-14 12:15] LABS: U Amphetamine Screen DETECTED; U Barbituate Screen Not Detected; U Methamphetamine Screen Not Detected
[2024-06-14 12:16] LABS: U Benzodiazapine Screen DETECTED; U Buprenorphine Screen Not Detected; U Cannabinoids Screen Not Detected; U Cocaine Screen Not Detected; U Methadone Screen Not Detected; U Opiates Screen Not Detected; U Oxycodone Screen Not Detected; U Phencyclidine Screen Not Detected
[2024-06-14 14:31] LABS: SARS-Cov-2 (COVID-19) PCR, MMC POSITIVE (NEGATIVE)
--- NOTE | 2024-06-14 14:46 | NUR ---
This rn to room for hourly rounding, pt sitting up in bed folding a small piece of tin foil and has a straw in hand, this rn asked what it was and pt becomes withdrawn and says nothing, this rn requested it and what it was, pt states is "fentanyl"; the patient states "its why im so sick, i need it to make me feel better." This RN educated pt on need to remove the fentanyl from her belongs, asked if she had a light or fire hazard and asked to look through patient's belonging; pt said no. Notified nurse discharge, nursing supervisor long goods, MD and security. At this time s/o to room and rumagging though patient belongings; set up and charger at bedside, educated pt on locking up her belonging and the risk of taking out drugs or medications and will be no longer allowed to have visitors. Pt upset and asking to leave AMA. Educated pt on risk vs benefit of leaving AMA; , stroke, PE and loss of limb with no benefits to leaving. Dr Thompson and Dr Dickerson to bedside, educated pt on risk of leaving, pt continues with the request to leave AMA, pt signed AMA papers and left with s/o. Faxed medications to [facility] per patient request. Provided the IR phone number to call office to schedule the procedure as an outpatient.
[2024-06-14 21:33] LABS: ANTINUCLEAR AB (ANA),HEP-2,IGG <1:80 (<1:80)
[2024-06-15 00:18] LABS: Adenovirus F 40/41 Not Detected (NOT DETECT); Astrovirus Not Detected (NOT DETECT); Campylobacter Sp Not Detected (NOT DETECT); Cryptosporidium Not Detected (NOT DETECT); Cyclospora Cayetanensis Not Detected (NOT DETECT); E. Coli O157 Not Detected (NOT DETECT); Entamoeba Histolytica Not Detected (NOT DETECT); Enteroaggregative E. coli-EAEC Not Detected (NOT DETECT); Enteropathogenic E. coli-EPEC Not Detected (NOT DETECT); Enterotoxigenic E. coli-ETEC Not Detected (NOT DETECT); Giardia Lamblia Not Detected (NOT DETECT); Norovirus GI/GII Not Detected (NOT DETECT); Plesiomonas Shigelloides Not Detected (NOT DETECT); Rotavirus A Not Detected (NOT DETECT); Salmonella Sp Not Detected (NOT DETECT); Sapovirus Not Detected (NOT DETECT); Shiga Toxin-prod E. coli-STEC Not Detected (NOT DETECT); Shigella/Enteroin E. coli-EIEC Not Detected (NOT DETECT); Vibrio Cholerae Not Detected (NOT DETECT); Vibrio Sp Not Detected (NOT DETECT); Yersinia Enterocolitica Not Detected (NOT DETECT)
[2024-06-15 22:01] LABS: ANTI-XA QUALITATIVE INTERP Present (Not Present); ANTICOAG MEDICATION NEUTRALIZ Hepzyme (Not Performed); DRVVT 1:1 MIX RATIO 1.31 (<=1.20); DRVVT CONFIRMATION RATIO 0.98 (<=1.20); DRVVT SCREEN RATIO 1.85 (<=1.20); HEXAGONAL PHOSPHOLIPID CONFIRM 29.8 s (<=7.9); NEUTRALIZED DRVVT SCREEN RATIO 1.63 (<=1.20); NEUTRALIZED PTT-LA RATIO 2.15 (<=1.20); PROTHROMBIN TIME (PT) 18.7 s (12.0-15.5); PTT-LA RATIO >4.00 (<=1.20); THROMBIN TIME (TT) >150.0 s (<=19.5)
[2024-06-16 07:46] LABS: FACTOR V LEIDEN F5 R506Q MUTAT Heterozygous; FACV SPECIMEN Whole Blood
[2024-06-16 15:54] LABS: ANTITHROMBIN, ENZYMAT ACTIVITY 89 % (76-128)
== END 2024-06-14 14:30 | disposition left against medical advice (07) | DRG 271 ==
LOC: ER 20:00 → ERHOLD 20:01 → MEDS 20:01 → PCU 06-12 15:31 → MEDS 06-12 15:31 → PCU 06-12 17:47
PROVIDERS: Family Medicine; Internal Medicine; Student in an Organized Health Care Education/Training Program; ADMIT Student in an Organized Health Care Education/Training Program
PROC: 04CK3ZZ Extirpation of Matter from Right Femoral Artery, Percutaneous Approach (ICD-10-PCS; principal; 2024-06-12)
PROC: 047C3DZ Dilation of Right Common Iliac Artery with Intraluminal Device, Percutaneous Approach (ICD-10-PCS; 2024-06-12)
PROC: 047H3DZ Dilation of Right External Iliac Artery with Intraluminal Device, Percutaneous Approach (ICD-10-PCS; 2024-06-12)
PROC: 04CM3ZZ Extirpation of Matter from Right Popliteal Artery, Percutaneous Approach (ICD-10-PCS; 2024-06-12)
PROC: 06703ZZ Dilation of Inferior Vena Cava, Percutaneous Approach (ICD-10-PCS; 2024-06-12)
DX: I82.411 Acute embolism and thrombosis of right femoral vein (principal); I74.9 Embolism and thrombosis of unspecified artery; L03.115 Cellulitis of right lower limb; I82.431 Acute embolism and thrombosis of right popliteal vein; I82.451 Acute embolism and thrombosis of right peroneal vein; I82.441 Acute embolism and thrombosis of right tibial vein; I82.811 Embolism and thrombosis of superficial veins of right lower extremity; D64.9 Anemia, unspecified; E87.6 Hypokalemia; R50.9 Fever, unspecified; F15.10 Other stimulant abuse, uncomplicated; F11.10 Opioid abuse, uncomplicated; F17.210 Nicotine dependence, cigarettes, uncomplicated; Z88.0 Allergy status to penicillin; Z88.1 Allergy status to other antibiotic agents; Z91.030 Bee allergy status; Z91.040 Latex allergy status
CPT/HCPCS: 36415; 37187; 37238; 37239; 37248; 71260; 75716; 76937; 80053; 81001; 81025; 81241; 83605; 83735; 83880; 84100; 84484; 84703; 85014; 85018; 85025; 85300; 85303; 85306; 85379; 85520; 85610; 85651; 85730; 86039; 86140; 86141; 87040; 87507; 93971; 96361; 96365-59; 96366; 96367; 96375-59; 96376; 99152; 99153; 99285-25; A9270; C1725; C1757; C1769; C1876; C1887; C1894; G0378; J0696; J0780; J1200; J1630; J1644; J1885; J2060; J2250; J2405; J3010; J3370; J3480; J7030; J7050; J7120; Q9967; U0002

== ENCOUNTER 2024-07-25 22:59 | Emergency (ER) | payer OTHER ==
[~2024-07-25] VITALS: Ht 154.9 cm; Wt 56.7 kg
[2024-07-25 23:03] VITALS: BP 132/69
[2024-07-25] MEDS ORDERED: Trimethoprim/Sulfamethoxazole DS Tab PO ONE (23:40)
[2024-07-25] MEDS ORDERED: Rivaroxaban 10 MG Tab PO ONE (23:40)
[2024-07-25] MEDS ORDERED: DiphenhydrAMINE HCl 50 MG Cap PO ONE (23:40)
[2024-07-25] MEDS ORDERED: XARELTO1 EAC1 PO (23:45)
[2024-07-25] MEDS ORDERED: Bactrim Ds Tab1 EACH PO (23:45)
== END 2024-07-25 23:57 | disposition home or self-care (01) ==
LOC: ER 22:59
DX: I82.401 Acute embolism and thrombosis of unspecified deep veins of right lower extremity (principal); L03.116 Cellulitis of left lower limb; L25.9 Unspecified contact dermatitis, unspecified cause; Z91.030 Bee allergy status; Z88.0 Allergy status to penicillin; Z91.040 Latex allergy status; F17.210 Nicotine dependence, cigarettes, uncomplicated
CPT/HCPCS: 99282; A9270

== ENCOUNTER 2024-08-21 05:30 | Emergency (ER) | payer OTHER ==
[~2024-08-21] VITALS: Ht 154.9 cm; Wt 52.2 kg
[~2024-08-21 05:30] MED LIST changes: +XARELTO1 EAC1 PO
[2024-08-21 08:11] VITALS: BP 121/77
== END 2024-08-21 09:19 | disposition left against medical advice (07) ==
LOC: ER 05:30
DX: L03.115 Cellulitis of right lower limb (principal); R21 Rash and other nonspecific skin eruption; F17.210 Nicotine dependence, cigarettes, uncomplicated; Z86.718 Personal history of other venous thrombosis and embolism; Z88.0 Allergy status to penicillin; Z91.030 Bee allergy status; Z91.040 Latex allergy status
CPT/HCPCS: 99283